=== PATIENT | female | born 1980 | race Caucasian/White ===

== ENCOUNTER 2021-06-17 19:34 | Emergency (ER) | payer BC ==
[2021-06-17 19:53] VITALS: BP 146/88; PULSE 88; TEMP 98.7; BMI 29.4
[2021-06-17] MEDS ORDERED: DIPHTH,PERTUSS(ACELL),TET 0.5 ML DISP.SYRIN IM ONE ×2 (20:16→20:28)
[2021-06-17] MEDS ORDERED: IBUPROFEN 400 MG TABLET (FP) PO ONE ×2 (20:17→20:28)
[2021-06-17] MEDS ORDERED: AMOX TR/POT CLAV 875MG/125MG TABLETS (FP) ONE (20:31)
== END 2021-06-17 22:44 | disposition home or self-care (01) ==
LOC: JERFT 19:34 → JER 19:34 → JERFT 22:44
PROC: 3E0234Z Introduction of Serum, Toxoid and Vaccine into Muscle, Percutaneous Approach (ICD-10-PCS; principal; 2021-06-17)
DX: S41.151A Open bite of right upper arm, initial encounter (principal); W54.0XXA Bitten by dog, initial encounter; Y92.9 Unspecified place or not applicable
CPT/HCPCS: 90715; 99283-25